=== PATIENT | male | born 1955 | race Caucasian/White ===

== ENCOUNTER → 2018-02-21 | Outpatient (CLI) | payer BC | END | disposition home or self-care (01) | LOC: US 10:30 | DX: E04.2 Nontoxic multinodular goiter (principal) ==

== ENCOUNTER → 2018-11-18 | Outpatient (CLI) | payer BC | END | disposition home or self-care (01) | LOC: US 11-09 16:00 | DX: E04.2 Nontoxic multinodular goiter (principal); E04.0 Nontoxic diffuse goiter ==